=== PATIENT | male | born 1990 | race Caucasian/White ===

== ENCOUNTER 2023-10-29 14:48 | Emergency (ER) | payer MEDICAID, OTHER ==
[~2023-10-29] VITALS: Ht 177.8 cm; Wt 145.2 kg
[2023-10-29 14:57] VITALS: BP 145/88; PULSE 93; RESP 16; TEMP 98.3; O2SAT 98
[2023-10-29] MEDS: CefTRIAXone 1000mg IM Kit (w/lidocaine diluent) IM ONE (17:11)
[2023-10-29 17:12] LABS: BASOPHILS # (AUTO) 0.2 X10'3 (0-0.2); BASOPHILS % (AUTO) 1.9 % (0-1); EOSINOPHILS # (AUTO) 0.1 X10'3 (0-0.9); HEMATOCRIT 44.6 % (42.0-52.0); HEMOGLOBIN 14.7 g/dl (14.0-17.9); LYMPHOCYTES # (AUTO) 3.1 X10'3 (1.1-4.8); MEAN CORPUSCULAR HEMOGLOBIN 26.8 PG (27.0-31.0); MEAN CORPUSCULAR VOLUME 81.2 FL (78-98); MEAN PLATELET VOLUME 9.5 FL (7.4-10.4); MONOCYTES # (AUTO) 0.9 X10'3 (0-0.9); NEUTROPHILS # (AUTO) 8.2 X10'3 (1.8-7.7); NEUTROPHILS % (AUTO) 65.1 % (42-75); PLATELET COUNT 281 X10'3 (140-440); RED CELL DISTRIBUTION WIDTH 14.1 % (11.5-14.5); WHITE BLOOD COUNT 12.5 X10'3 (4.5-11.0)
[2023-10-29] MEDS: TETanus/Pertussis (Acell)/Diphther VAC/PF (Tdap-Adult) 0.5ml syringe IMVAC ONE (17:12)
[2023-10-29] MEDS: LIDOcaine 1% W/epiNEPHrine 1:100,000 20ml vial IJ ONE (17:19)
[2023-10-29 17:21] LABS: ALBUMIN 3.6 G/DL (3.4-5.0); ANION GAP 8 (8-16); CALCIUM 9.6 MG/DL (8.5-10.1); CHLORIDE 100 MMOL/L (99-107); CREATININE 0.69 MG/DL (0.60-1.10); GLUCOSE 264 MG/DL (70-104); POTASSIUM 4.2 MMOL/L (3.5-5.1); SODIUM 136 MMOL/L (135-145); TOTAL CARBON DIOXIDE 27.6 MMOL/L (24-32); eCRCL 156 ML/MIN; eGFR > 90 ML/MIN
[2023-10-29 17:25] LABS: BLOOD UREA NITROGEN 12 MG/DL (7-18); BUN/CREATININE RATIO 17.4 (10.0-20.0)
[2023-10-29] MEDS ORDERED: SULF1TAB49 PO (17:27)
== END 2023-10-29 17:59 | disposition home or self-care (01) ==
LOC: ER 14:48
DX: L03.314 Cellulitis of groin (principal); L02.214 Cutaneous abscess of groin; Z79.2 Long term (current) use of antibiotics
CPT/HCPCS: 10060; 36415; 80048; 85025; 90471; 90715; 96372; 99284; J0696; A6449

== ENCOUNTER 2023-11-03 16:11 | Emergency (ER) | payer MEDICAID ==
[~2023-11-03] VITALS: Ht 177.8 cm; Wt 138.6 kg
[~2023-11-03 16:11] MED LIST: SULF1TAB49 PO
[2023-11-03 16:20] VITALS: BP 157/87; PULSE 87; RESP 18; TEMP 97.3; O2SAT 100
[2023-11-03] MEDS ORDERED: SULF1TAB49 PO (16:33)
[2023-11-03] MEDS ORDERED: MUPI22OI30 TP (16:33)
== END 2023-11-03 16:44 | disposition home or self-care (01) ==
LOC: ER 16:11
DX: L03.314 Cellulitis of groin (principal); L02.214 Cutaneous abscess of groin; E11.9 Type 2 diabetes mellitus without complications; Z48.00 Encounter for change or removal of nonsurgical wound dressing; Z79.899 Other long term (current) drug therapy
CPT/HCPCS: 82948; 99283